=== PATIENT | female | born 2000 | race Caucasian/White ===

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

== ENCOUNTER → 2021-02-19 | Outpatient (CLI) | payer OTHER ==
[~2021-02-19] MED LIST: CELEXA10 MG PO; COLACE 100MG C100 MG PO; FERROUS SULFAT325 M2 PO; IBUPROFEN600 MG PO; LORTAB 5-325 M1 EACH PO; MACRODANTIN100 MG PO; MECLIZINE HCL12.5 MG PO; PHENERGAN 12.12.5 M1 PO; PRENATABS FA T1 EACH PO; TESSALON PERLE100 MG PO; ZOFRAN 4 MG TAB4 MG PO
== END ==
LOC: LAB 15:01
DX: Z32.00 Encounter for pregnancy test, result unknown (principal)
CPT/HCPCS: 84702

== ENCOUNTER 2021-09-11 21:38 | Outpatient (CLI) | payer OTHER | END 2021-09-12 00:43 | disposition home or self-care (01) | LOC: GENOP 21:38 | DX: O26.853 Spotting complicating pregnancy, third trimester (principal); O99.891 Other specified diseases and conditions complicating pregnancy; R51.9 Headache, unspecified; R10.30 Lower abdominal pain, unspecified; Z3A.33 33 weeks gestation of pregnancy | CPT/HCPCS: 81001; 96360; 96361; 96372; J0702; J3105 ==

== ENCOUNTER 2021-09-17 22:15 | Outpatient (CLI) | payer OTHER | END 2021-09-18 01:04 | disposition home or self-care (01) | LOC: GENOP 22:15 | DX: O47.03 False labor before 37 completed weeks of gestation, third trimester (principal); Z3A.34 34 weeks gestation of pregnancy | CPT/HCPCS: 81001; 96360; 96361 ==

== ENCOUNTER 2021-10-20 05:05 | Inpatient (IN) | payer OTHER ==
[~2021-10-20] VITALS: Ht 160 cm; Wt 56.2 kg
[2021-10-20 05:51] LABS: HEMOGLOBIN 10.1 gm/dl (12.3-15.3); RED BLOOD COUNT 4.35 M/UL (4.00-5.10); WHITE BLOOD COUNT 10.6 K/UL (4.5-11.0)
[2021-10-20] MEDS ORDERED: COLACE 100MG C100 MG PO (10:01)
[2021-10-20] MEDS ORDERED: HYDROCODON-ACE1 EAC6 PO (10:01)
[2021-10-20] MEDS ORDERED: IBUPROFEN600 MG PO (10:01)
[2021-10-21 07:33] LABS: HEMOGLOBIN 9.8 gm/dl (12.3-15.3)
== END 2021-10-21 14:26 | disposition home or self-care (01) | DRG 788 ==
LOC: OB 05:05
PROVIDERS: ADMIT Obstetrics & Gynecology
PROC: 4A1HXCZ Monitoring of Products of Conception, Cardiac Rate, External Approach (ICD-10-PCS; 2021-10-20)
PROC: 10D00Z1 Extraction of Products of Conception, Low, Open Approach (ICD-10-PCS; principal; 2021-10-20 08:44)
DX: O34.211 Maternal care for low transverse scar from previous cesarean delivery (principal); Z3A.39 39 weeks gestation of pregnancy; Z37.0 Single live birth; Z20.822 Contact with and (suspected) exposure to COVID-19; Z82.49 Family history of ischemic heart disease and other diseases of the circulatory system; Z81.8 Family history of other mental and behavioral disorders; Z83.3 Family history of diabetes mellitus; Z80.9 Family history of malignant neoplasm, unspecified
CPT/HCPCS: 36415; 81001; 82800; 85014; 85018; 85025; C9113; J0690; J1885; J2250; J2274; J2370; J2405; J2590; J3010

== ENCOUNTER 2021-12-11 16:32 | Emergency (ER) | payer OTHER ==
[~2021-12-11 16:32] MED LIST changes: +HYDROCODON-ACE1 EAC6 PO
[2021-12-11 17:41] LABS: HEMOGLOBIN 11.6 gm/dl (12.3-15.3); RED BLOOD COUNT 4.54 M/UL (4.00-5.10); WHITE BLOOD COUNT 5.9 K/UL (4.5-11.0)
[2021-12-11 18:06] LABS: BUN/CREATININE RATIO 20 (0-10)
[2021-12-11] MEDS ORDERED: BENTYL 20MG TAB20 MG PO (20:52)
[2021-12-11] MEDS ORDERED: ZOFRAN ODT 4 MG4 MG PO (20:52)
== END 2021-12-11 21:07 | disposition home or self-care (01) ==
LOC: ER1 16:32
PROVIDERS: Emergency Medicine
DX: N93.9 Abnormal uterine and vaginal bleeding, unspecified (principal)
CPT/HCPCS: 80053; 81001; 83690; 84703; 85025; 99284; Q9967